=== PATIENT | female | born 1985 | race American Indian/Alaskan Native ===

== ENCOUNTER 2024-07-01 06:20 | Inpatient (IN) | payer OTHER ==
[2024-07-01] MEDS ORDERED: ACETAMINOPHEN INJECTION 100 ML ONE (06:45)
[2024-07-01] MEDS: ACETAMINOPHEN 1000 MG/100 ML BAG IVPB ONE (06:56)
[2024-07-01 07:38] LABS: BASO % 0.4 % (0-2.0); EOS % 1.8 % (0-4.5); HEMATOCRIT 27.8 % (32.4-45.2); HEMOGLOBIN 8.7 GM/dL (10.7-15.3); LYMPH % 13.9 % (8-40); MCH 24.4 pg (25.7-33.7); MCHC 31.2 g/dl (32.0-36.0); MEAN CELL VOLUME 78.3 fl (80-96); MEAN PLT VOLUME 8.5 fl (7.5-11.1); NEUT % 76.9 % (42.8-82.8); PLATELET COUNT 294 10^3/uL (134-434); RBC 3.55 M/mm3 (3.60-5.2); RDW 17.5 % (11.6-15.6); WHITE BLOOD COUNT 15.8 K/mm3 (4.0-10.0)
[2024-07-01 07:57] LABS: POTASSIUM 5.1 mmol/L (3.5-5.1)
[2024-07-01 07:59] LABS: ALBUMIN 2.1 g/dl (3.4-5.0); CALCIUM 8.3 mg/dL (8.5-10.1)
[2024-07-01] MEDS ORDERED: morphine SULFATE 4 MG/ML VIAL ONE (07:59)
[2024-07-01] MEDS ORDERED: ONDANSETRON 4 MG/2 ML VIAL ONE (07:59)
[2024-07-01 08:00] LABS: BLOOD UREA NITROGEN 12.2 mg/dL (7-18)
[2024-07-01 08:02] LABS: CREATININE 0.8 mg/dL (0.55-1.3)
[2024-07-01 08:04] LABS: BILIRUBIN,TOTAL 0.3 mg/dL (0.2-1); TOT PROT 6.1 g/dl (6.4-8.2)
[2024-07-01] MEDS: morphine CARPU-JECT 4 MG/1 ML DISP.SYRIN IVPUSH ONE (08:08)
[2024-07-01] MEDS: ONDANSETRON 4 MG/2 ML VIAL IVPUSH ONE (08:08)
[2024-07-01] MEDS: morphine CARPU-JECT 2 MG/1 ML DISP.SYRIN IVPUSH ONE (08:09)
[2024-07-01 08:25] LABS: EPI CELLS 31 /uL (0-25.1); HYALINE CASTS 0 /uL (0-3.1); URINE APPEARANCE CLEAR; URINE BACTERIA 27 /uL (0-1359); URINE BILIRUBIN NEGATIVE (NEGATIVE); URINE COLOR YELLOW; URINE GLUCOSE (UA) NEGATIVE (NEGATIVE); URINE KETONE NEGATIVE (NEGATIVE); URINE LEUK ESTERASE 2+ (NEGATIVE); URINE NITRITE NEGATIVE (NEGATIVE); URINE PROTEIN TRACE (NEGATIVE); URINE RBC 254 /uL (0-23.9); URINE UROBILINOGEN 0.2 mg/dL (0.2-1.0); URINE WBC 213 /uL (0-25.8)
[2024-07-01 08:27] LABS: INR 0.92 (0.83-1.09); PROTHROMBIN TIME (PATIENT) 10.6 SEC (9.7-13.0)
[2024-07-01 08:29] LABS: ACTIVATED PTT 30.3 SECONDS (25.2-36.5)
[2024-07-01] MEDS ORDERED: AMPICILLIN NA/SULBACTAM NA 3 GM/100 ML BAG IVPB ONE (09:35)
[2024-07-01] MEDS: AMPICILLIN NA/SULBACTAM NA 3 GM in SODIUM CHLORIDE 100 ML IVPB ONE (09:52)
[2024-07-01 10:47] LABS: MAGNESIUM 2.1 mg/dL (1.8-2.4)
[2024-07-01] MEDS ORDERED: oxyCODONE HCL 5 MG TABLET ONE (12:44)
[2024-07-01] MEDS: oxyCODONE HCL 5 MG TABLET PO ONE (12:52)
[2024-07-01] MEDS ORDERED: PIPERACILLIN/TAZOB 4.5 GM 4.5 GM/100 ML BAG IVPB ONE (14:49)
[2024-07-01] MEDS: PIPERACILLIN/TAZOB 4.5 GM 4.5 GM in DEXTROSE 5%-WATER 100 ML IVPB ONE (14:56)
[2024-07-01] MEDS ORDERED: oxyCODONE HCL 5 MG TABLET PO PRN (15:06)
[2024-07-01] MEDS: LACTATED RINGERS SOLUTION 1,000 ML/1,000 ML INFUS.BAG IV SCH (16:54)
[2024-07-01] MEDS ORDERED: MORPHINE SULFATE 2 MG/ML SYRINGE ONE (16:59)
[2024-07-01] MEDS: MORPHINE SULFATE 2 MG/ML SYRINGE IVPUSH PRN (17:04)
[2024-07-01] MEDS: KETOROLAC TROMETHAMINE 15 MG/ML VIAL IVPUSH PRN (18:00)
[2024-07-01] MEDS ORDERED: KETOROLAC TROMETHAMINE 15 MG/ML VIAL ONE ×2 (18:12→18:13)
[2024-07-01] MEDS ORDERED: PIPERACILLIN/TAZOB 4.5 GM 4.5 GM in DEXTROSE 5%-WATER 100 ML IVPB SCH (20:00)
[2024-07-01] MEDS: PIPERACILLIN/TAZOB 4.5 GM 4.5 GM in DEXTROSE 5%-WATER 100 ML IVPB SCH (20:45)
[2024-07-01] MEDS ORDERED: LACTATED RINGERS SOLUTION 1,000 ML/1,000 ML INFUS.BAG IV SCH (22:32)
[2024-07-01] MEDS: FUROSEMIDE 40 MG/4 ML INJECTABLE VIAL IVPUSH ONE (23:11)
[2024-07-01 23:25] LABS: BASO % 0.2 % (0-2.0); EOS % 1.5 % (0-4.5); HEMATOCRIT 29.2 % (32.4-45.2); HEMOGLOBIN 9.5 GM/dL (10.7-15.3); LYMPH % 13.6 % (8-40); MCH 24.8 pg (25.7-33.7); MCHC 32.4 g/dl (32.0-36.0); MEAN CELL VOLUME 76.6 fl (80-96); MEAN PLT VOLUME 7.6 fl (7.5-11.1); MONO % 9.5 % (3.8-10.2); NEUT % 75.2 % (42.8-82.8); PLATELET COUNT 353 10^3/uL (134-434); RBC 3.82 M/mm3 (3.60-5.2); RDW 17.1 % (11.6-15.6); WHITE BLOOD COUNT 16.7 K/mm3 (4.0-10.0)
[2024-07-01 23:35] LABS: POTASSIUM 4.3 mmol/L (3.5-5.1)
[2024-07-01 23:38] LABS: ALBUMIN 2.1 g/dl (3.4-5.0); BLOOD UREA NITROGEN 14.3 mg/dL (7-18)
[2024-07-01 23:41] LABS: CREATININE 0.9 mg/dL (0.55-1.3)
[2024-07-01 23:42] LABS: BILIRUBIN,TOTAL 0.4 mg/dL (0.2-1)
[2024-07-01 23:43] LABS: TOT PROT 5.9 g/dl (6.4-8.2)
[2024-07-01 23:46] LABS: N-TERMINAL BNP 2074.6 pg/ml (5-125)
[2024-07-02] MEDS: ACETAMINOPHEN 1000 MG/100 ML BAG IVPB PRN ×2 (00:36→22:25)
[2024-07-02 01:01] VITALS: BMI 25.0
[2024-07-02] MEDS: IBUPROFEN 800 MG/8 ML IJ IVPB PRN (05:13)
[2024-07-02] MEDS: FUROSEMIDE 40 MG/4 ML INJECTABLE VIAL IVPUSH SCH (05:59)
[2024-07-02 07:52] LABS: BASO % 0.2 % (0-2.0); EOS % 2.1 % (0-4.5); HEMATOCRIT 30.2 % (32.4-45.2); HEMOGLOBIN 9.4 GM/dL (10.7-15.3); LYMPH % 14.6 % (8-40); MCHC 30.9 g/dl (32.0-36.0); MEAN CELL VOLUME 77.5 fl (80-96); MEAN PLT VOLUME 8.2 fl (7.5-11.1); MONO % 8.7 % (3.8-10.2); NEUT % 74.4 % (42.8-82.8); PLATELET COUNT 363 10^3/uL (134-434); RDW 16.8 % (11.6-15.6); WHITE BLOOD COUNT 16.6 K/mm3 (4.0-10.0)
[2024-07-02 08:48] LABS: POTASSIUM 3.9 mmol/L (3.5-5.1)
[2024-07-02 08:51] LABS: CALCIUM 8.1 mg/dL (8.5-10.1)
[2024-07-02 08:52] LABS: BLOOD UREA NITROGEN 15.3 mg/dL (7-18)
[2024-07-02] MEDS: ENOXAPARIN NA (PORCINE) 40 MG/0.4 ML DISP.SYRIN SQ SCH (09:17)
[2024-07-02] MEDS: ACETAMINOPHEN 500 MG TABLET (FP) PO PRN ×2 (09:38→18:13)
[2024-07-02] MEDS: CEFTRIAXONE 2 GM in DEXTROSE 5%-WATER 100 ML IVPB SCH (12:36)
[2024-07-03 08:16] LABS: BASO % 0.3 % (0-2.0); EOS % 1.8 % (0-4.5); HEMATOCRIT 34.3 % (32.4-45.2); HEMOGLOBIN 10.8 GM/dL (10.7-15.3); LYMPH % 15.7 % (8-40); MCH 24.6 pg (25.7-33.7); MCHC 31.5 g/dl (32.0-36.0); MEAN PLT VOLUME 7.9 fl (7.5-11.1); NEUT % 75.2 % (42.8-82.8); PLATELET COUNT 481 10^3/uL (134-434); RBC 4.39 M/mm3 (3.60-5.2); RDW 17.1 % (11.6-15.6); WHITE BLOOD COUNT 18.1 K/mm3 (4.0-10.0)
[2024-07-03 08:23] LABS: POTASSIUM 4.6 mmol/L (3.5-5.1)
[2024-07-03 08:28] LABS: ALBUMIN 2.4 g/dl (3.4-5.0); BLOOD UREA NITROGEN 19.8 mg/dL (7-18)
[2024-07-03 08:29] LABS: CALCIUM 8.7 mg/dL (8.5-10.1)
[2024-07-03 08:30] LABS: MAGNESIUM 2.2 mg/dL (1.8-2.4)
[2024-07-03 08:32] LABS: CREATININE 0.9 mg/dL (0.55-1.3)
[2024-07-03 08:33] LABS: BILIRUBIN,TOTAL 0.5 mg/dL (0.2-1); TOT PROT 7.1 g/dl (6.4-8.2)
[2024-07-03] MEDS: FUROSEMIDE 40 MG/4 ML INJECTABLE VIAL IVPUSH SCH (09:35)
[2024-07-03] MEDS: CEFTRIAXONE 2 GM in DEXTROSE 5%-WATER 100 ML IVPB SCH (09:35)
[2024-07-03] MEDS ORDERED: CEFTRIAXONE 2 GM-D5W BAG 2 GM/50 ML BAG IVPB SCH (10:00)
[2024-07-03] MEDS ORDERED: MIDAZOLAM HCL 2 MG/2 ML SINGLE DOSE VIAL ONE (10:33)
[2024-07-03] MEDS: MIDAZOLAM HCL 2 MG/2 ML SINGLE DOSE VIAL IVPUSH ONE (12:00)
[2024-07-03 12:20] VITALS: RESP 18
[2024-07-03] MEDS: SODIUM CHLORIDE 500 ML IV ONE (14:54)
[2024-07-04 06:51] LABS: HEMATOCRIT 34.4 % (32.4-45.2); HEMOGLOBIN 10.8 GM/dL (10.7-15.3); MCH 24.4 pg (25.7-33.7); MCHC 31.4 g/dl (32.0-36.0); MEAN CELL VOLUME 77.9 fl (80-96); MEAN PLT VOLUME 7.7 fl (7.5-11.1); PLATELET COUNT 502 10^3/uL (134-434); RBC 4.42 M/mm3 (3.60-5.2); RDW 16.8 % (11.6-15.6); WHITE BLOOD COUNT 14.9 K/mm3 (4.0-10.0)
[2024-07-04 07:08] LABS: POTASSIUM 4.1 mmol/L (3.5-5.1)
[2024-07-04 07:17] LABS: CALCIUM 8.9 mg/dL (8.5-10.1)
[2024-07-04 07:18] LABS: ALBUMIN 2.4 g/dl (3.4-5.0); BLOOD UREA NITROGEN 23.2 mg/dL (7-18); MAGNESIUM 2.3 mg/dL (1.8-2.4)
[2024-07-04 07:21] LABS: CREATININE 0.7 mg/dL (0.55-1.3)
[2024-07-04 07:23] LABS: BILIRUBIN,TOTAL 0.2 mg/dL (0.2-1); TOT PROT 6.7 g/dl (6.4-8.2)
[2024-07-04] MEDS ORDERED: ACETAMINOPHEN 1000 MG/100 ML BAG IVPB PRN (07:39)
[2024-07-04 09:11] LABS: ANISOCYTOSIS 0; MACROCYTOSIS 0
[2024-07-04] MEDS: traMADol HCL 50 MG TABLET PO PRN (13:41)
[2024-07-04] MEDS: oxyCODONE HCL 5 MG TABLET PO PRN (21:18)
[2024-07-04] MEDS: ACETAMINOPHEN 500 MG TABLET (FP) PO PRN (21:19)
[2024-07-05 07:00] LABS: BASO % 0.5 % (0-2.0); EOS % 4.7 % (0-4.5); HEMATOCRIT 35.2 % (32.4-45.2); HEMOGLOBIN 10.9 GM/dL (10.7-15.3); MCH 24.2 pg (25.7-33.7); MCHC 30.9 g/dl (32.0-36.0); MEAN CELL VOLUME 78.3 fl (80-96); MEAN PLT VOLUME 7.7 fl (7.5-11.1); MONO % 6.9 % (3.8-10.2); NEUT % 64.9 % (42.8-82.8); PLATELET COUNT 548 10^3/uL (134-434); RBC 4.49 M/mm3 (3.60-5.2); RDW 16.6 % (11.6-15.6); WHITE BLOOD COUNT 13.7 K/mm3 (4.0-10.0)
[2024-07-05 07:22] LABS: POTASSIUM 4.5 mmol/L (3.5-5.1)
[2024-07-05 07:28] LABS: ALBUMIN 2.4 g/dl (3.4-5.0); BLOOD UREA NITROGEN 19.5 mg/dL (7-18); CALCIUM 8.8 mg/dL (8.5-10.1); MAGNESIUM 2.1 mg/dL (1.8-2.4)
[2024-07-05 07:31] LABS: CREATININE 0.8 mg/dL (0.55-1.3)
[2024-07-05 07:33] LABS: BILIRUBIN,TOTAL 0.3 mg/dL (0.2-1); TOT PROT 6.8 g/dl (6.4-8.2)
[2024-07-05 17:29] VITALS: BP 118/90; PULSE 91; TEMP 98.1
== END 2024-07-05 19:05 | disposition home health service (06) | DRG 776 ==
LOC: JER 06:20 → JERBED 14:18 → J3W 20:20 → J4W 07-02 11:43
PROVIDERS: ADMIT Internal Medicine; ATTEND Nurse Practitioner Family
PROC: 0W9J3ZZ Drainage of Pelvic Cavity, Percutaneous Approach (ICD-10-PCS; principal; 2024-07-03)
DX: O86.04 Sepsis following an obstetrical procedure (principal); J81.0 Acute pulmonary edema; O86.20 Urinary tract infection following delivery, unspecified; N39.0 Urinary tract infection, site not specified; I97.131 Postprocedural heart failure following other surgery; Y83.9 Surgical procedure, unspecified as the cause of abnormal reaction of the patient, or of later complication, without mention of misadventure at the time of the procedure; I50.9 Heart failure, unspecified; O90.89 Other complications of the puerperium, not elsewhere classified; N83.201 Unspecified ovarian cyst, right side
CPT/HCPCS: 10030; 36415; 71045-TC-FY; 74177-TC; 76830-TC; 77012-TC; 80048; 80053; 81003; 82248; 83735; 83880; 84443; 84484; 84702; 85025; 85610; 85730; 86140; 86850; 86900; 86901; 87070; 87075; 87086; 87116; 87186; 87205; 87206; 93005; 93010; 93306-TC; 99285-25; J0131